=== PATIENT | male | born 1990 | race Caucasian/White ===

== ENCOUNTER 2025-09-13 12:18 | Inpatient (IN) | payer OTHER ==
[2025-09-13 13:00] LABS: BASOPHILS ABSOLUTE AUTO 0.0 K/mm3 (0.0-0.2); BASOPHILS PERCENT AUTO 0.4 % (0.0-1.0); EOSINOPHILS ABSOLUTE AUTO 0.0 K/mm3 (0.0-0.4); EOSINOPHILS PERCENT AUTO 0.0 % (0.0-6.0); IMMATURE GRAN ABSOLUTE AUTO 0.02 K/mm3 (0.00-0.05); IMMATURE GRAN PERCENT AUTO 0.4 % (0.0-0.4); LYMPHOCYTES ABSOLUTE AUTO 0.7 K/mm3 (1.0-4.8); LYMPHOCYTES PERCENT AUTO 13.0 % (24.0-44.0); MEAN PLATELET VOLUME 9.8 fl (9.4-12.4); MONOCYTES ABSOLUTE AUTO 0.6 K/mm3 (0.0-0.8); MONOCYTES PERCENT AUTO 10.0 % (0.0-8.0); NEUTROPHILS ABSOLUTE AUTO 4.3 K/mm3 (1.8-7.7); NEUTROPHILS PERCENT AUTO 76.2 % (41.0-71.0); NRBC ABSOLUTE 0.00 (0.00-0.02); NRBC PERCENT 0.0 % (0.0-0.2); PLATELET COUNT,PLT 45 K/mm3 (150-400); RED BLOOD CELL COUNT 3.39 M/mm3 (4.52-5.90); WHITE BLOOD CELL COUNT,WBC 5.68 K/mm3 (3.9-11.3)
[2025-09-13 13:24] LABS: A/G RATIO 1.2 (1-2); ALANINE AMINOTRANSFERASE,ALT 96 U/L (16-63); ASPARTATE AMNIOTRANSFERASE,AST 185 U/L (15-37); BILIRUBIN TOTAL 5.8 mg/dL (0.2-1.0); BLOOD UREA NITROGEN,BUN 11 mg/dL (7-18); CARBON DIOXIDE,CO2 32 mEq/L (21-32); CHLORIDE,CL 96 mEq/L (98-107); ESTIMATED GFR 117 mL/min (>60); GLUCOSE RANDOM 78 mg/dL (70-99); SODIUM,NA 139 mEq/L (136-145); TROPONIN I HIGH SENSITIVITY 19 pg/mL (<=76)
[2025-09-13 13:31] LABS: CREATININE 0.8 mg/dL (0.7-1.3); POTASSIUM,K 2.0 mEq/L (3.5-5.1); PROTEIN TOTAL,TP 7.2 g/dl (6.4-8.2)
[2025-09-13] MEDS: Iopamidol 755 Mg/ML 100 ML Bottle IVPUSH ONE (13:43)
[2025-09-13] MEDS: Sodium Chloride 0.9% 10 ML Syringe FLUSH PRN ×2 (13:43→13:53)
[2025-09-13] MEDS: Ondansetron 4 MG/2 ML SDV IVPUSH ONE (13:55)
[2025-09-13] MEDS: Magnesium Sulfate 2 GM/50 mL 2 GM in Premix Bag 1 BAG IV ONE (16:03)
[2025-09-13] MEDS: Potassium Chloride 20 MEQ Tab.ER PO ONE (17:59)
[2025-09-13] MEDS: Thiamine 200 MG/2 ML MDV IVPUSH ONE (19:23)
[2025-09-13 19:25] LABS: A/G RATIO 1.1 (1-2); ALANINE AMINOTRANSFERASE,ALT 79 U/L (16-63); ASPARTATE AMNIOTRANSFERASE,AST 137 U/L (15-37); BILIRUBIN TOTAL 4.7 mg/dL (0.2-1.0); BLOOD UREA NITROGEN,BUN 8 mg/dL (7-18); CARBON DIOXIDE,CO2 28 mEq/L (21-32); CHLORIDE,CL 98 mEq/L (98-107); CREATININE 0.8 mg/dL (0.7-1.3); ESTIMATED GFR 117 mL/min (>60); GLUCOSE RANDOM 75 mg/dL (70-99); PROTEIN TOTAL,TP 6.2 g/dl (6.4-8.2); SODIUM,NA 140 mEq/L (136-145)
[2025-09-13 19:33] LABS: POTASSIUM,K 2.5 mEq/L (3.5-5.1)
[2025-09-13 21:05] LABS: APPEARANCE,URINE CLEAR (Clear); GLUCOSE,URINE NEGATIVE (Negative); OCCULT BLOOD,URINE 2+ (Negative)
[2025-09-13 21:14] LABS: EPITHELIAL CELLS,URINE 0-5 /hpf (0-5)
[2025-09-14] MEDS: LORazepam 2 MG/ML SDV IVPUSH PRN (00:10)
[2025-09-14 06:24] LABS: BASOPHILS ABSOLUTE AUTO 0.0 K/mm3 (0.0-0.2); BASOPHILS PERCENT AUTO 0.5 % (0.0-1.0); EOSINOPHILS ABSOLUTE AUTO 0.1 K/mm3 (0.0-0.4); EOSINOPHILS PERCENT AUTO 1.2 % (0.0-6.0); IMMATURE GRAN ABSOLUTE AUTO 0.01 K/mm3 (0.00-0.05); IMMATURE GRAN PERCENT AUTO 0.2 % (0.0-0.4); LYMPHOCYTES ABSOLUTE AUTO 1.2 K/mm3 (1.0-4.8); LYMPHOCYTES PERCENT AUTO 28.9 % (24.0-44.0); MEAN PLATELET VOLUME 9.5 fl (9.4-12.4); MONOCYTES ABSOLUTE AUTO 0.4 K/mm3 (0.0-0.8); MONOCYTES PERCENT AUTO 8.5 % (0.0-8.0); NEUTROPHILS ABSOLUTE AUTO 2.5 K/mm3 (1.8-7.7); NEUTROPHILS PERCENT AUTO 60.7 % (41.0-71.0); NRBC ABSOLUTE 0.00 (0.00-0.02); NRBC PERCENT 0.0 % (0.0-0.2); PLATELET COUNT,PLT 41 K/mm3 (150-400); RED BLOOD CELL COUNT 3.10 M/mm3 (4.52-5.90); WHITE BLOOD CELL COUNT,WBC 4.12 K/mm3 (3.9-11.3)
[2025-09-14 06:37] LABS: A/G RATIO 1.0 (1-2); ALANINE AMINOTRANSFERASE,ALT 72.0 U/L (16-63); ASPARTATE AMNIOTRANSFERASE,AST 121.0 U/L (15-37); BILIRUBIN TOTAL 2.9 mg/dL (0.2-1.0); BLOOD UREA NITROGEN,BUN 8.0 mg/dL (7-18); CARBON DIOXIDE,CO2 31.0 mEq/L (21-32); CHLORIDE,CL 105.0 mEq/L (98-107); CREATININE 0.8 mg/dL (0.7-1.3); EST CRCL DRUG DOSING (CG) 101.31 mL/min; ESTIMATED GFR 117.0 mL/min (>60); GLUCOSE RANDOM 91.0 mg/dL (70-99); POTASSIUM,K 3.2 mEq/L (3.5-5.1); PROTEIN TOTAL,TP 5.9 g/dl (6.4-8.2); SODIUM,NA 143.0 mEq/L (136-145)
[2025-09-14] MEDS: Magnesium Sulfate 2 GM/50 mL 2 GM in Premix Bag 1 BAG IV ONE ×2 (07:26→08:13)
[2025-09-14] MEDS: Potassium Chloride 20 MEQ Tab.ER PO SCH (08:12)
[2025-09-14] MEDS: Thiamine 200 MG/2 ML MDV IVPUSH SCH (10:20)
[2025-09-15 04:53] LABS: MEAN PLATELET VOLUME 10.2 fl (9.4-12.4); NRBC ABSOLUTE 0.00 (0.00-0.02); NRBC PERCENT 0.0 % (0.0-0.2); PLATELET COUNT,PLT 51 K/mm3 (150-400); RED BLOOD CELL COUNT 3.00 M/mm3 (4.52-5.90); WHITE BLOOD CELL COUNT,WBC 3.51 K/mm3 (3.9-11.3)
[2025-09-15 05:31] LABS: A/G RATIO 0.9 (1-2); ALANINE AMINOTRANSFERASE,ALT 76.0 U/L (16-63); ASPARTATE AMNIOTRANSFERASE,AST 164.0 U/L (15-37); BILIRUBIN TOTAL 1.3 mg/dL (0.2-1.0); BLOOD UREA NITROGEN,BUN 6.0 mg/dL (7-18); CARBON DIOXIDE,CO2 28.0 mEq/L (21-32); CHLORIDE,CL 107.0 mEq/L (98-107); CREATININE 0.8 mg/dL (0.7-1.3); EST CRCL DRUG DOSING (CG) 102.12 mL/min; ESTIMATED GFR 117.0 mL/min (>60); GLUCOSE RANDOM 134.0 mg/dL (70-99); POTASSIUM,K 3.3 mEq/L (3.5-5.1); PROTEIN TOTAL,TP 5.6 g/dl (6.4-8.2); SODIUM,NA 142.0 mEq/L (136-145)
[2025-09-15] MEDS: Magnesium Sulf/Wat 4 GM/50 mL 4 GM in Premix Bag 1 BAG IV ONE (10:36)
[2025-09-16 06:22] LABS: A/G RATIO 0.9 (1-2); ALANINE AMINOTRANSFERASE,ALT 92.0 U/L (16-63); ASPARTATE AMNIOTRANSFERASE,AST 179.0 U/L (15-37); BILIRUBIN TOTAL 1.6 mg/dL (0.2-1.0); BLOOD UREA NITROGEN,BUN 4.0 mg/dL (7-18); CARBON DIOXIDE,CO2 29.0 mEq/L (21-32); CHLORIDE,CL 103.0 mEq/L (98-107); CREATININE 0.7 mg/dL (0.7-1.3); EST CRCL DRUG DOSING (CG) 117.54 mL/min; ESTIMATED GFR 122.0 mL/min (>60); GLUCOSE RANDOM 97.0 mg/dL (70-99); POTASSIUM,K 3.9 mEq/L (3.5-5.1); PROTEIN TOTAL,TP 6.4 g/dl (6.4-8.2); SODIUM,NA 139.0 mEq/L (136-145)
[2025-09-16] MEDS: Magnesium Sulf/Wat 4 GM/50 mL 4 GM in Premix Bag 1 BAG IV ONE (10:25)
[2025-09-16] MEDS: Magnesium Sulfate 2 GM/50 mL 2 GM in Premix Bag 1 BAG IV ONE (20:12)
[2025-09-17 06:03] LABS: A/G RATIO 0.9 (1-2); ALANINE AMINOTRANSFERASE,ALT 103.0 U/L (16-63); ASPARTATE AMNIOTRANSFERASE,AST 179.0 U/L (15-37); BILIRUBIN TOTAL 1.4 mg/dL (0.2-1.0); BLOOD UREA NITROGEN,BUN 5.0 mg/dL (7-18); CARBON DIOXIDE,CO2 30.0 mEq/L (21-32); CHLORIDE,CL 103.0 mEq/L (98-107); CREATININE 0.9 mg/dL (0.7-1.3); EST CRCL DRUG DOSING (CG) 88.18 mL/min; ESTIMATED GFR 113.0 mL/min (>60); GLUCOSE RANDOM 91.0 mg/dL (70-99); POTASSIUM,K 4.5 mEq/L (3.5-5.1); PROTEIN TOTAL,TP 6.6 g/dl (6.4-8.2); SODIUM,NA 140.0 mEq/L (136-145)
[2025-09-17] MEDS ORDERED: Thiamine 200 MG/2 ML MDV IVPUSH SCH (09:00)
[2025-09-19 18:43] LABS: ANA BY ELISA, IGG W/RFX TO IFA None Detected (None Detected)
[2025-09-20 07:47] LABS: SM MUSC IGG TITER NOT DONE; SMOOTH MUSC AB, IGG 5 Units (0-19)
== END 2025-09-17 09:55 | disposition home or self-care (01) | DRG 432 ==
LOC: JD.ED 12:18 → JD.MS 19:12
PROVIDERS: ADMIT Internal Medicine; ATTEND Family Medicine
DX: K70.10 Alcoholic hepatitis without ascites (principal); G92.8 Other toxic encephalopathy; M62.82 Rhabdomyolysis; F10.139 Alcohol abuse with withdrawal, unspecified; E46 Unspecified protein-calorie malnutrition; Z68.1 Body mass index [BMI] 19.9 or less, adult; E87.6 Hypokalemia; F43.10 Post-traumatic stress disorder, unspecified; E83.42 Hypomagnesemia; R74.01 Elevation of levels of liver transaminase levels; G62.9 Polyneuropathy, unspecified; I10 Essential (primary) hypertension; K21.9 Gastro-esophageal reflux disease without esophagitis; M19.90 Unspecified osteoarthritis, unspecified site; G89.29 Other chronic pain; G20.A1 Parkinson's disease without dyskinesia, without mention of fluctuations; F17.210 Nicotine dependence, cigarettes, uncomplicated; R56.9 Unspecified convulsions; Z88.6 Allergy status to analgesic agent; Z88.8 Allergy status to other drugs, medicaments and biological substances; Z91.0110 Allergy to milk products, unspecified; Z98.890 Other specified postprocedural states
CPT/HCPCS: 36415; 70450; 71045; 71260; 72125; 74177; 76705; 80053 ×2; 80307; 82140; 83735 ×2; 84484; 85025; 86140; 93005; A9270; J2405; J3475 ×2; J3480 ×4; J7030 ×2; Q9967; 81001; 82550; 82746; 84425; 85027; 86015; 86038; 86256; 86381; 93010; 96361; 96365; 96366; 96368; 96375; 97116-GP; 97162-GP; 97530-GP; 99285; 99285-25; J1650; J2060; J3411